=== PATIENT | female | born 1940 | race Caucasian/White ===

== ENCOUNTER 2017-04-16 21:03 | Emergency (ER) | payer MEDICARE, BC ==
[~2017-04-16] VITALS: Ht 154.9 cm; Wt 79.4 kg
[2017-04-16 21:45] VITALS: BP 120/66
--- NOTE | 2017-04-16 22:02 | Emergency Room Report ---
History of Present Illness General Chief Complaint: Multiple Trauma/Fall Source: Patient Present Illness HPI Patient is a 76-year-old female who presented after a slip and fall. She reported increased pain to her left shoulder. The patient denied any numbness or tingling distally. She reported having pain to the left shoulder she denied any neck pain or loss of consciousness. The injury occurred just prior to arrival. Allergies: Coded Allergies: PENICILLINS (Verified Allergy, Unknown, 04/16/17) Patient History Last Menstrual Period: NA Now: No Reviewed Nursing Documentation: PMH: Agreed, PSxH: Agreed Nursing Documentation-PMH Hx Hypertension: Yes Review of Systems All Other Systems: negative except mentioned in HPI Physical Exam Vital Signs Date Time Temp Pulse Resp B/P (MAP) Pulse Ox O2 Delivery O2 Flow Rate FiO2 04/16/17 21:34 97.8 69 18 84/47 99 Room Air 97.9 Sp02 EP Interpretation: reviewed, normal General Appearance: normal inspection, well appearing, no apparent distress, alert, GCS 15 Head: atraumatic ENT: normal ENT inspection, hearing grossly normal, normal voice Neck: normal inspection, full range of motion, supple, no bony tend Respiratory: normal inspection, lungs clear, normal breath sounds, no respiratory distress, no retraction, no wheezing Cardiovascular #1: regular rate, rhythm, no edema Gastrointestinal: normal inspection, normal bowel sounds, non tender, soft, no guarding, no hernia Genitourinary: no CVA tenderness Musculoskeletal: normal inspection, back normal, normal range of motion, decreased range of motion - left shoulder decreased ROM, tender Neurologic: normal inspection, alert, oriented x3, responsive, speech normal Psychiatric: normal inspection, judgement/insight normal, mood/affect normal Skin: normal inspection, normal color, no rash Medical Decision Making Diagnostic Impression: Primary Impression: Fall Additional Impression: Fracture, humerus closed ER Course Patient presented for fall and right shoulder pain. Differential diagnosis included was not limited to fracture, dislocation, sprain, contusion among others.Because of complexity of patient's case imaging studies were ordered.Extremity left shoulder 3 views and rhythm me showed nondisplaced proximal humerus fracture. The patient was a shoulder immobilizer. She is given prescription for pain medications. The patient will arrange her own orthopedic physician. The patient was return if there is any concerns Last Vital Signs Date Time Temp Pulse Resp B/P (MAP) Pulse Ox O2 Delivery O2 Flow Rate FiO2 04/16/17 21:34 97.8 69 18 84/47 99 Room Air 97.9 Status: improved Disposition: HOME, SELF-CARE Condition: Stable Scripts Oxycodone Hcl/Acetaminophen 10-325 Mg Tablet (PERCOCET 10-325 MG TABLET*) 1 Each Tablet 1 TAB ORAL Q6H Y for For Pain, #30 TAB 0 Refills Prov: David Flores 04/16/17 David Flores Apr 16, 2017 22:02
[2017-04-16] MEDS ORDERED: PERCOCET 10-321 EACH ORAL (22:41)
[2017-04-16] MEDS ORDERED: Ketorolac 60mg Inj IM ONE (23:00)
[2017-04-16 23:25] VITALS: BP 129/67
[2017-04-16 23:27] VITALS: BP 129/67
--- NOTE | 2017-04-17 10:42 | Diagnostic Imaging Report ---
Indication: left shoulder pain Findings: 3 views of the left shoulder were obtained. There is a fracture of the left humeral neck including the greater tuberosity. The bones are osteopenic. There is no displacement of the fracture identified. IMPRESSION: Acute humeral neck fracture with greater tuberosity involvement.
== END 2017-04-16 23:27 | disposition home or self-care (01) ==
LOC: EMR 22:27
DX: S42.255A Nondisplaced fracture of greater tuberosity of left humerus, initial encounter for closed fracture (principal); W01.0XXA Fall on same level from slipping, tripping and stumbling without subsequent striking against object, initial encounter; Y92.9 Unspecified place or not applicable; I10 Essential (primary) hypertension; Z88.0 Allergy status to penicillin
CPT/HCPCS: 96372; 99283